=== PATIENT | male | born 1970 | race Caucasian/White ===

== ENCOUNTER 2017-11-09 19:57 | Emergency (ER) | payer OTHER ==
--- NOTE | 2017-11-09 20:08 | ED Physician Documentation ---
PD HPI BACK PAIN - Stated complaint Stated Complaint: BACK PX - History obtained from History obtained from: Patient - History of Present Illness Timing - onset: How many hours ago (2) Timing - duration: Hours (2) Timing - details: Abrupt onset, Waxing and waning Pain level max: 10 Pain level now: 10 Location: Left Quality: Pain Associated symptoms: No: Fever Improves with: Nothing Worsened by: Other (no exacerbating factors) Similar symptoms before: Diagnosis (similar to previous renal colic) Recently seen: Not recently seen Review of Systems Constitutional: reports: Reviewed and negative Cardiac: reports: Reviewed and negative Respiratory: reports: Reviewed and negative GI: reports: Nausea, Vomiting. denies: Abdominal Pain : denies: Dysuria, Frequency PD PAST MEDICAL HISTORY - Past Medical History Past Medical History: No - Past Surgical History Past Surgical History: No - Present Medications Home Medications: Ambulatory Orders Medication Instructions Recorded Confirmed Tamsulosin [Flomax] 0.4 mg PO DAILY #7 capsule 11/09/17 oxyCODONE/ACET 5/325 [Percocet 5 1 - 2 each PO Q6H PRN #20 tablet 11/09/17 mg/325 mg] - Allergies Allergies/Adverse Reactions: Allergies Allergy/AdvReac Type Severity Reaction Status Date / Time No Known Drug Allergies Allergy Verified 11/09/17 20:13 - Social History Does the pt smoke?: No PD ED PE NORMAL - Vitals Vital signs reviewed: Yes - General General: Alert and oriented X 3, Well developed/nourished, Other (obvious painful distress) - Cardiac Cardiac: RRR, No murmur - Respiratory Respiratory: No respiratory distress, Clear bilaterally - Abdomen Abdomen: Soft, Non tender - Back Back: No CVA TTP - Derm Derm: Other (diaphoretic) Results - Vitals Vitals: Vital Signs - 24 hr 11/09/17 11/09/17 20:05 21:45 Temperature 36.4 C L 36.9 C Heart Rate 61 78 Respiratory 20 15 Rate Blood Pressure 196/110 H 124/74 O2 Saturation 100 98 Oxygen O2 Source Room air - Labs Labs: Laboratory Tests 11/09/17 11/09/17 20:15 20:15 WBC 9.9 RBC 4.79 Hgb 15.1 Hct 44.3 MCV 92.4 MCH 31.5 H MCHC 34.0 RDW 13.2 Plt Count 283 MPV 8.4 Neut # 5.6 Lymph # 3.3 [place] # 0.8 Eos # 0.1 Baso # 0.1 Absolute Nucleated RBC 0.01 Nucleated RBC % 0.1 Sodium 135 Potassium 3.3 L Chloride 98 L Carbon Dioxide 26 Anion Gap 11.0 BUN 20 Creatinine 1.0 Estimated GFR (MDRD) 80 L Glucose 112 H Calcium 9.8 Total Bilirubin 0.6 AST 28 ALT 33 Alkaline Phosphatase 72 Total Protein 8.4 H Albumin 5.2 Globulin 3.2 Albumin/Globulin Ratio 1.6 Lipase 27 - Rads (name of study) CT A/P Radiology: Prelim report reviewed, See rad report PD MEDICAL DECISION MAKING - ED course Complexity details: reviewed results, re-evaluated patient, considered differential, d/w patient ED course: patient reported good pain relief after toradol and dilaudid. Departure - Departure Disposition: 01 Home, Self Care Clinical Impression: Renal colic Condition: Good Instructions: ED Stone Renal W Colic Follow-Up: ISAI Linn [Provider Group] Prescriptions: oxyCODONE/ACET 5/325 [Percocet 5 mg/325 mg] 1 - 2 each PO Q6H PRN #20 tablet PRN Reason: Pain Tamsulosin [Flomax] 0.4 mg PO DAILY #7 capsule Discharge Date/Time: 11/09/17 21:45
[2017-11-09] MEDS ORDERED: KETOROLAC 60 MG/2 ML VIAL IVP STA (20:18)
[2017-11-09] MEDS ORDERED: ONDANSETRON 4 MG/2 ML VIAL IVP STA (20:18)
[2017-11-09] MEDS ORDERED: HYDROmorphone 1 MG/ML CARPUJECT IVP STA (20:18)
[2017-11-09 20:26] LABS: BASOPHILS # (AUTO) 0.1 10^3/uL (0.0-0.1); BASOPHILS % (AUTO) 0.9 %; EOSINOPHILS # (AUTO) 0.1 10^3/uL (0.0-0.7); EOSINOPHILS % (AUTO) 1.4 %; HGB - HEMOGLOBIN 15.1 g/dL (14.0-18.0); LYMPHOCYTES # (AUTO) 3.3 10^3/uL (1.5-3.5); LYMPHOCYTES % (AUTO) 33.4 %; MEAN CORPUSCULAR HEMOGLOBIN 31.5 pg (27.0-31.0); MEAN CORPUSCULAR VOLUME 92.4 fL (80.0-94.0); MEAN PLATELET VOLUME 8.4 fL (7.4-11.4); MONOCYTES # (AUTO) 0.8 10^3/uL (0.0-1.0); MONOCYTES % (AUTO) 7.7 %; NEUTROPHILS # (AUTO) 5.6 10^3/uL (1.5-6.6); NEUTROPHILS % (AUTO) 56.6 %; PLT - PLATELET COUNT 283 10^3/uL (130-450); RED BLOOD COUNT 4.79 10^6/uL (4.70-6.10); RED CELL DISTRIBUTION WIDTH 13.2 % (12.0-15.0); WHITE BLOOD COUNT 9.9 x10^3/uL (4.8-10.8)
[2017-11-09 20:44] LABS: ALBUMIN 5.2 g/dL (3.2-5.5); ALBUMIN/GLOBULIN RATIO 1.6 (1.0-2.2); BILIRUBIN,TOTAL 0.6 mg/dL (0.2-1.0); CALCIUM 9.8 mg/dL (8.5-10.3); TOTAL PROTEIN 8.4 g/dL (6.7-8.2)
--- NOTE | 2017-11-09 21:02 | CT Report ---
EXAM: CT ABDOMEN AND PELVIS (CT KUB) EXAM DATE: 11/09/2017 08:42 PM. CLINICAL HISTORY: Left flank pain. COMPARISONS: None. TECHNIQUE: Routine axial helical CT imaging was performed through the abdomen and pelvis without IV c ontrast. Reconstructions: Coronal and sagittal. In accordance with CT protocol optimization, one or more of the following dose reduction techniques w ere utilized for this exam: automated exposure control, adjustment of mA and/or KV based on patient s ize, or use of iterative reconstructive technique. FINDINGS: Lung Bases: Clear. Right Kidney/Ureter: 3 mm intrarenal calculus in the lower pole. No hydronephrosis or hydroureter. No perinephric fat stranding. 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 Mild hydroureteronephrosi s extending to a 4 x 3 x 3 mm distal ureteral calculus (axial image 125, coronal image 67). Associate d mild perinephric and periureteric fat stranding. Other Solid Organs: Noncontrast images of the solid organs are grossly unremarkable. Gallbladder/Bile Ducts: Unremarkable. Peritoneal Cavity: The bowel is grossly unremarkable, without evident focal wall thickening or adjace nt mesenteric fat stranding to suggest acute inflammatory process, or evidence of bowel obstruction. The appendix is normal. No free fluid, pneumoperitoneum, or nolan adenopathy. Pelvic Organs: No bladder stones or wall thickening. Noncontrast images of the visualized pelvic orga ns are unremarkable. Vasculature: Unremarkable. Bones: Mild degenerative changes within the spine. No acute bony abnormality. Other: Large right and small left fat-containing inguinal hernias, without evidence of inflammation. IMPRESSION: 1. 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 Mild left hydroureter onephrosis extending to a 4 x 3 x 3 mm distal ureteral calculus. 2. Tiny nondestructive right intrarenal calculus. 3. Large right and small left fat-containing inguinal hernias. [facility] Referring Provider Line: [phone] SITE ID: [id number]
[2017-11-09] MEDS ORDERED: TAMSULOSIN 0.4 MG CAPSULE PO STA (21:26)
[2017-11-09] MEDS ORDERED: oxyCODONE/ACET 5/325 Prepack 4 PO STA (21:26)
[2017-11-09 22:13] VITALS: BP 124/74
== END 2017-11-09 21:45 | disposition home or self-care (01) ==
LOC: ED 19:57
DX: N23 Unspecified renal colic (principal)
CPT/HCPCS: 36415; 74176; 80053; 83690; 85025; 96374; 96375; 99283; 99284; A9270; J1170

== ENCOUNTER 2018-04-28 16:42 | Outpatient (CLI) | payer OTHER ==
[2018-04-28 17:13] LABS: ALBUMIN 4.3 g/dL (3.2-5.5); ALBUMIN/GLOBULIN RATIO 1.4 (1.0-2.2); BASOPHILS # (AUTO) 0.1 10^3/uL (0.0-0.1); BILIRUBIN,TOTAL 0.5 mg/dL (0.2-1.0); CALCIUM 9.3 mg/dL (8.5-10.3); CREATININE 1.1 mg/dL (0.6-1.2); EOSINOPHILS # (AUTO) 0.1 10^3/uL (0.0-0.7); EOSINOPHILS % (AUTO) 1.4 %; HGB - HEMOGLOBIN 13.3 g/dL (14.0-18.0); LYMPHOCYTES # (AUTO) 2.1 10^3/uL (1.5-3.5); LYMPHOCYTES % (AUTO) 34.3 %; MEAN CORPUSCULAR HEMOGLOBIN 32.9 pg (27.0-31.0); MEAN CORPUSCULAR HGB CONC 35.3 g/dL (32.0-36.0); MEAN CORPUSCULAR VOLUME 93.5 fL (80.0-94.0); MEAN PLATELET VOLUME 8.6 fL (7.4-11.4); MONOCYTES # (AUTO) 0.5 10^3/uL (0.0-1.0); MONOCYTES % (AUTO) 7.5 %; NEUTROPHILS # (AUTO) 3.5 10^3/uL (1.5-6.6); NEUTROPHILS % (AUTO) 55.8 %; PLT - PLATELET COUNT 261 10^3/uL (130-450); RED BLOOD COUNT 4.03 10^6/uL (4.70-6.10); RED CELL DISTRIBUTION WIDTH 13.3 % (12.0-15.0); TOTAL PROTEIN 7.3 g/dL (6.7-8.2); WHITE BLOOD COUNT 6.2 x10^3/uL (4.8-10.8)
== END 2018-04-28 16:43 | disposition home or self-care (01) ==
LOC: LAB 16:42
PROVIDERS: ATTEND Internal Medicine Gastroenterology
DX: K40.90 Unilateral inguinal hernia, without obstruction or gangrene, not specified as recurrent (principal); I10 Essential (primary) hypertension; K21.9 Gastro-esophageal reflux disease without esophagitis
CPT/HCPCS: 36415; 80053; 85025

== ENCOUNTER 2018-05-04 09:41 | Day surgery (SDC) | payer OTHER ==
[2018-05-04] MEDS ORDERED: ceFAZolin 2 GM/50 ML 2 GM/50 ML BAG IV ONE (09:48)
[2018-05-04] MEDS ORDERED: LACTATED RINGERS 1,000 ML IV ONE ×2 (10:10→12:32)
[2018-05-04] MEDS ORDERED: BUPIVACAINE 0.5% PF 30 ML VIAL ONE (10:20)
[2018-05-04] MEDS ORDERED: LIDOCAINE 1%-EPI 1:100000 30 ML MDV ONE (10:21)
[2018-05-04] MEDS ORDERED: ceFAZolin 1 GM VIAL ONE (10:23)
--- NOTE | 2018-05-04 10:54 | ANESTHESIA ---
Pre-Anesthesia VS, & Labs - Diagnosis R inguinal hernia - Procedure R inuinal hernia repair Vital Signs: Temp Pulse Resp BP Pulse Ox 36.4 C L 48 L 15 144/97 H 99 05/04/18 09:50 05/04/18 09:50 05/04/18 09:50 05/04/18 09:50 05/04/18 09:50 Height 6 ft Weight (kg) 83.2 kg Body Mass Index 25.0 - NPO >8 hours - Lab Results Lab results reviewed: Yes Home Medications and Allergies Home Medications: Ambulatory Orders Lisinopril 60 mg PO DAILY 05/01/18 Omeprazole 40 mg PO DAILY 05/01/18 Lisinopril 60 mg PO DAILY 05/01/18 Omeprazole 40 mg PO DAILY 05/01/18 Allergies/Adverse Reactions: Allergies Allergy/AdvReac Type Severity Reaction Status Date / Time No Known Drug Allergies Allergy Verified 05/01/18 14:11 Anes History & Medical History - Anesthetic History Anesthesia Complications: reports: No previous complications Family history of Anesthesia Complications: Denies Family history of Malignant Hyperthermia: Denies - Medical History Cardiovascular: reports: Hypertension Pulmonary: reports: None Gastrointestinal: reports: GERD Urinary: reports: None Musculoskeletal: reports: None Endocrine/Autoimmune: reports: None Skin: reports: None Exam General: Alert, Oriented x3, Cooperative, No acute distress Dental: WNL Mouth Openin Fingerbreadth Neck Mobility: Normal Mallampati classification: II Thyromental Distance: 4-6 cm Respiratory: Lungs clear, Normal breath sounds, No respiratory distress, No accessory muscle use Cardiovascular: Regular rate Neurological: Normal speech Mental/Cognitive Status: Alert/Oriented X3 Cognitive Status: Within normal limits Plan Anesthesia Type: General Consent for Procedure(s) Verified and Reviewed: Yes Code Status: Attempt Resuscitation ASA classification: 2-Mild systemic disease Is this case an emergency?: No
[2018-05-04] MEDS ORDERED: IBUPROFEN 600 MG TABLET PO PRN (12:45)
[2018-05-04] MEDS ORDERED: ACETAMINOPHEN 325 MG TABLET PO PRN (12:45)
[2018-05-04] MEDS ORDERED: oxyCODONE 5 MG TABLET PO PRN (12:45)
[2018-05-04] MEDS ORDERED: ONDANSETRON 4 MG/2 ML VIAL IVP PRN (12:45)
[2018-05-04] MEDS ORDERED: LIDOCAINE-MPF 2% 5 ML VIAL IM ONE (12:50)
[2018-05-04] MEDS ORDERED: MIDAZOLAM 2 MG/2 ML VIAL IVP ONE (12:50)
[2018-05-04] MEDS ORDERED: fentaNYL 100 MCG/2 ML VIAL IVP ONE (12:50)
[2018-05-04] MEDS ORDERED: GLYCOPYRROLATE 1 MG/5 ML VIAL IVP ONE (12:50)
[2018-05-04] MEDS ORDERED: ONDANSETRON 4 MG/2 ML VIAL IVP ONE (12:50)
[2018-05-04] MEDS ORDERED: PROPOFOL 200 MG/20 ML VIAL IVP ONE (12:50)
[2018-05-04] MEDS ORDERED: DEXAMETHASONE 4 MG/ML VIAL IVP ONE (12:50)
[2018-05-04] MEDS ORDERED: HYDROmorphone 0.5 MG/0.5 ML SYRINGE ONE (13:03)
[2018-05-04] MEDS ORDERED: ACETAMINOPHEN 1,000 MG/100 ML 100 ML IV ONE (13:08)
--- NOTE | 2018-05-04 13:45 | OPERATIVE REPORT ---
DATE OF SERVICE: 05/04/2018 Physician: Jacob Joiner MD PREOPERATIVE DIAGNOSIS: Symptomatic right inguinal hernia. POSTOPERATIVE DIAGNOSIS: Symptomatic right inguinal hernia. PROCEDURE PERFORMED: Open repair with Bard soft mesh. ANESTHESIA: Local, plus laryngeal mask anesthesia by Dr. Medley. SURGEON: Jacob Joiner MD ESTIMATED BLOOD LOSS: Minimal. COMPLICATIONS: None. DRAINS: None. FINDINGS: A moderate-sized direct right inguinal hernia was present. There was no evidence of indir ect hernia. INDICATIONS FOR PROCEDURE: Patient is a 48-year-old gentleman with a history of a painful reducible right groin bulge. Evaluation revealed a right inguinal hernia. He was advised to undergo repair fo r definitive surgical treatment. PROCEDURE: After informed consent, the patient was taken to the operating room where he was placed u nder general laryngeal mask anesthesia. Preoperative preparation included application of sequential calf compression boots, administration of 2 grams of cefazolin intravenously within an hour of the in cision. His right groin had been clipped and was prepared with iodoform solution, following which a right groin block was instituted using a 50:50 combination of 1% lidocaine plain and 0.5% Marcaine wi th epinephrine. A total of 30 mL of the mixture was used. His right groin was re-prepared with Chlo raPrep solution and draped in the usual sterile fashion. A transverse incision was made in the skin lines of the right groin, beginning just above the pubic tubercle, extending laterally 4-5 cm in rita th. Hemostasis was achieved with electrocautery and 2-0 Vicryl ties. Incision was carried down thro ugh Tere's fascia until the external oblique aponeurosis was identified and was incised along the l ángel of its fibers in such a manner as to expose the internal ring and open the external ring. The s permatic cord was mobilized and encircled with a Minnie drain. The ilioinguinal nerve was divided t o avoid entrapment or traction injury. The cord was dissected, isolating the direct sac from the sukhdev rounding cord structures. The cord was mobilized to the level of the internal ring. A search for an indirect hernia was made and none was identified. The direct defect consisted of essentially the en tirety of the inguinal floor and was reduced and the floor imbricated with continuous 0 Ethibond sutu re. After hemostasis was assured, the wound was irrigated with antibiotic solution containing 1 gram of cefazolin per liter, following which the Bard precut slotted expanded polypropylene mesh was soak ed in antibiotic solution, placed over the inguinal floor and secured in place circumferentially with continuous 3-0 Prolene sutures. Care was taken to avoid excessive tightening of the patch around th e cord at the level of the internal ring. After hemostasis was assured, the wound was irrigated with antibiotic solution. Again, wound closure was accomplished in layers using continuous 2-0 Vicryl, r eapproximated external oblique aponeurosis overlying the cord, followed by 3-0 Vicryl for Tere's fa scia, followed by 4-0 Monocryl subcuticular skin closure, followed by Dermabond. The procedure was t erminated and the patient was transferred out of the operating room in satisfactory condition. Sponge and needle counts correct x2. No drains were used TD: 05/04/2018 13:01
[2018-05-04] MEDS ORDERED: oxyCODONE 5 MG TABLET ONE (14:36)
[2018-05-04 15:38] VITALS: BP 122/63
== END 2018-05-04 09:42 | disposition home or self-care (01) ==
LOC: SDS 09:41
PROVIDERS: ATTEND Internal Medicine Gastroenterology
PROC: 0YU50JZ Supplement Right Inguinal Region with Synthetic Substitute, Open Approach (ICD-10-PCS; principal; 2018-05-04 11:00)
DX: K40.90 Unilateral inguinal hernia, without obstruction or gangrene, not specified as recurrent (principal); I10 Essential (primary) hypertension; K21.9 Gastro-esophageal reflux disease without esophagitis
CPT/HCPCS: 49505; A9270; C1781; J0131; J0690; J1170; J7120

== ENCOUNTER 2019-05-12 19:29 | Outpatient (CLI) | payer OTHER | END 2019-05-12 19:30 | disposition short-term general hospital (02) | LOC: EMS 19:29 | PROVIDERS: ATTEND Surgery | DX: R07.9 Chest pain, unspecified (principal); R20.0 Anesthesia of skin | CPT/HCPCS: A0425; A0427 ==